=== PATIENT | male | born 1990 | race Caucasian/White ===

== ENCOUNTER 2020-08-04 15:54 | Emergency (ER) | payer BC, OTHER ==
[~2020-08-04] VITALS: Ht 180.3 cm; Wt 110.0 kg
[2020-08-04 15:57] VITALS: BP 150/90
[2020-08-04] MEDS ORDERED: ketorolac trometh. 30mg/ml inj. IM ONE (16:55)
[2020-08-04] MEDS ORDERED: CYCL-394 PO (16:56)
[2020-08-04] MEDS ORDERED: METH4TAB81 PO (17:28)
--- NOTE | 2020-08-04 17:28 | NUR ---
Pt wants something less sedating that Wolfgang noonan PA aware and will right for something different.
== END 2020-08-04 17:35 | disposition home or self-care (01) ==
LOC: ER 15:55
DX: S39.012A Strain of muscle, fascia and tendon of lower back, initial encounter (principal); G89.29 Other chronic pain; Z79.899 Other long term (current) drug therapy; X58.XXXA Exposure to other specified factors, initial encounter; Y93.89 Activity, other specified; Y92.89 Other specified places as the place of occurrence of the external cause; Y99.8 Other external cause status
CPT/HCPCS: 96372; 99283; J1885